=== PATIENT | male | born 1995 | race Caucasian/White ===

== ENCOUNTER 2019-03-05 09:05 | Emergency (ER) | payer OTHER ==
[~2019-03-05] VITALS: Ht 182.9 cm; Wt 85.4 kg
[2019-03-05 09:20] VITALS: BP 137/72
--- NOTE | 2019-03-05 09:35 | NUR ---
24 Y/O M BIB FRIEND THAT STATES PT HAD A "SEIZURE" AT 6:30AM THIS MORNING. FRIEND DESCRIBES PT SHAKING. PT STATES HE HAS AT A HOUSE [employer] LAST NIGHT AND DRANK JUNGLE JUICE, SMOKED MARIJUNA, VAPED. PT STATES HE PASSED LAST EVENING AND AWOKE TO HIS FRIEND STATING HE FEELS HE HAD A SEIZURE. PT VS STABLE. 02 100x ON 2 L OXYGEN. SEIZURE PADS IN PLACE, BED LOWERED. PT FRIEND AT BEDSIDE. NKA MEDHX: NONE
--- NOTE | 2019-03-05 09:44 | NUR ---
PT TO CT BY WILLIAM.
--- NOTE | 2019-03-05 09:44 | NUR ---
X RAY AT BEDSIDE.
--- NOTE | 2019-03-05 09:54 | NUR ---
PT RETURNED FROM CT BY WILLIAM.
--- NOTE | 2019-03-05 10:34 | NUR ---
EMT AT BEDSIDE PERFORMING EKG
[2019-03-05 10:47] LABS: BASOPHILS % (AUTO) 0.1 % (0.0-2.0); EOSINOPHILS # (AUTO) 0.1 K/uL (0-0.4); EOSINOPHILS % (AUTO) 0.5 % (0.0-4.0); HEMATOCRIT 49.1 % (36-52); LYMPHOCYTES # (AUTO) 2.5 K/uL (2.0-11.5); LYMPHOCYTES % (AUTO) 11.9 % (20.5-51.1); MEAN CORPUSCULAR HEMOGLOBIN 30 pg (27-31); MEAN CORPUSCULAR HGB CONC 33 g/dL (33-37); MEAN CORPUSCULAR VOLUME 92.3 fL (80-94); MONOCYTES # (AUTO) 0.8 K/uL (0.8-1.0); MONOCYTES % (AUTO) 3.7 % (1.7-9.3); NEUTROPHILS # (AUTO) 17.4 K/uL (1.8-7.7); NEUTROPHILS % (AUTO) 83.8 % (42.2-75.2); PLATELET COUNT (AUTO) 193 K/uL (140-450); RED BLOOD CELL COUNT(AUTO) 5.32 MIL/uL (4.20-6.10); RED CELL DISTRIBUTION WIDTH 13.9 % (11.6-13.7); WHITE BLOOD COUNT (AUTO) 20.8 K/uL (4.8-10.8)
[2019-03-05 11:01] LABS: APPEARANCE,URINE CLEAR (CLEAR); BILIRUBIN,URINE NEGATIVE (NEGATIVE); BLOOD, URINE NEGATIVE (NEGATIVE); COLOR,URINE YELLOW (YELLOW); LEUKOCYTE ESTERASE ,URINE NEGATIVE (NEGATIVE); NITRITE, URINE NEGATIVE (NEGATIVE); UGLUCOSE NEGATIVE (NEGATIVE)
[2019-03-05 11:01] LABS: ANION GAP 11.6 (8-16); CARBON DIOXIDE 30.5 mmol/L (21-32); CHLORIDE 99 mmol/L (98-107); CREATININE 1.1 mg/dL (0.7-1.3); GFR ARICAN-AMERICAN 106 mL/min (>90); GLUCOSE 218 mg/dL (74-106); POTASSIUM 3.1 mmol/L (3.5-5.1); SODIUM SERUM 138 mmol/L (136-145); UREA NITROGEN, BLOOD 13 mg/dL (7-18)
[2019-03-05 11:13] LABS: RBC,URINE NONE SEEN /HPF (0-5); WBC,URINE 0-5 /HPF (0-5)
[2019-03-05 11:14] LABS: HYALINE CASTS, URINE 0-10 /LPF (None Seen)
[2019-03-05 11:16] LABS: BARBITURATE, URINE NEG. ng/ml (NEG <=200); BENZODIAZEPINE, URINE POS. ng/mL (NEG <=200); CANNABINOID, URINE POS. ng/mL (NEG <=50); COCAINE, URINE POS. ng/mL (NEG <=300); OPIATE, URINE NEG. ng/mL (NEG <=2000); PHENCYCLIDINE SCREEN,URINE NEG. ng/mL (NEG <=25)
[2019-03-05] MEDS ORDERED: NACL 0.9% 1,000 ML IV ONE (11:25)
[2019-03-05 11:27] LABS: ALBUMIN 4.1 g/dL (3.4-5.0); ASPARTATE AMINOTRANSFERASE 9 U/L (15-37); TOTAL BILIRUBIN 0.5 mg/dL (0.0-1.0)
[2019-03-05 11:35] LABS: SALICYLATE < 2.8 mg/dL (2.8-20.0)
[2019-03-05 11:38] LABS: ACETAMINOPHEN 73.9 ug/ml (10-30)
[2019-03-05] MEDS ORDERED: ACETYLCYSTEINE IV ONE ×3 (12:00)
[2019-03-05] MEDS ORDERED: DEXTROSE 5% IV ONE ×3 (12:00)
[2019-03-05] MEDS ORDERED: ACETYLCYSTEINE 20% (200 MG/ML) 200 MG/ML VIAL PO ONE (12:10)
[2019-03-05] MEDS ORDERED: ACETYLCYSTEINE IV 6000 MG/30 ML VIAL IV ONE (12:24)
[2019-03-05] MEDS ORDERED: ACETYLCYSTEINE 20% (200 MG/ML) 200 MG/ML VIAL PO SCH (12:30)
[2019-03-05 13:03] VITALS: BP 121/60
--- NOTE | 2019-03-05 13:03 | NUR ---
PT LEFT AMA. PT VERBALIZED UNDERSTANDING OF DOCTORS PLAN OF CARE. PT REFUSED.
== END 2019-03-05 13:03 | disposition left against medical advice (07) ==
LOC: MED 09:05
DX: T39.1X5A Adverse effect of 4-Aminophenol derivatives, initial encounter (principal); R56.9 Unspecified convulsions; Y92.89 Other specified places as the place of occurrence of the external cause
CPT/HCPCS: 36415; 70450; 71045; 80053; 80305; 81001; 84484; 85025; 93005; 99284; G0480; G0482; J0132; J7030; J7060; Q0092; J7608

== ENCOUNTER 2019-03-24 20:58 | Emergency (ER) | payer OTHER ==
[~2019-03-24] VITALS: Ht 182.9 cm; Wt 84.8 kg
[2019-03-24 21:05] VITALS: BP 98/61
--- NOTE | 2019-03-24 21:08 | NUR ---
TO LOBBY A/W BED AMBULATORY
--- NOTE | 2019-03-24 21:23 | NUR ---
PT AMBULATED TO BED 10 WITH FAMILY MEMBER
[2019-03-24] MEDS ORDERED: LORazepam 2 MG/ML VIAL ONE (21:39)
[2019-03-24] MEDS ORDERED: NACL 0.9% 1,000 ML IV ONE (21:40)
[2019-03-24] MEDS ORDERED: LORazepam 2 MG/ML VIAL IVP ONE (21:40)
--- NOTE | 2019-03-24 21:47 | NUR ---
Pt came into hosptial for sz lasting 2 minutes at home. Pt friend states he had a seizure e 3weeks ago as well. Friend state he saw the pt head tilt back in chair and his whole body shake. Pt states he feels light headed before the sz. pt admits to smoking weed today nothing else. Pt VSS upon arrival. When placing pt on sz percautions and starting IV. Pt became sinus nehal in low 30's. pt became pale, cool and head tilted back to pillow. Dr. matta notfied of pt condition. order 2mg of ativan iv. Pt BP taken again while nehal. Pt BP 62/25. Pt placed on nonrebreather mask at 15lpm. Dr. matta at bedside assessing pt. pt appears to be very lethargic but responsive. Pt placed on defib pads. Pt BS checked 131.
--- NOTE | 2019-03-24 21:48 | NUR ---
EKG PERFORMED AT BEDSIDE
[2019-03-24 22:04] LABS: BASOPHILS % (AUTO) 0.2 % (0.0-2.0); EOSINOPHILS # (AUTO) 0.1 K/uL (0-0.4); EOSINOPHILS % (AUTO) 0.9 % (0.0-4.0); HEMATOCRIT 49.8 % (36-52); HEMOGLOBIN 16.4 g/dL (12.0-18.0); LYMPHOCYTES # (AUTO) 2.2 K/uL (2.0-11.5); LYMPHOCYTES % (AUTO) 15.8 % (20.5-51.1); MEAN CORPUSCULAR HEMOGLOBIN 30 pg (27-31); MEAN CORPUSCULAR HGB CONC 33 g/dL (33-37); MEAN CORPUSCULAR VOLUME 90.7 fL (80-94); MONOCYTES # (AUTO) 0.6 K/uL (0.8-1.0); MONOCYTES % (AUTO) 4.7 % (1.7-9.3); NEUTROPHILS # (AUTO) 10.8 K/uL (1.8-7.7); NEUTROPHILS % (AUTO) 78.4 % (42.2-75.2); PLATELET COUNT (AUTO) 196 K/uL (140-450); RED BLOOD CELL COUNT(AUTO) 5.49 MIL/uL (4.20-6.10); RED CELL DISTRIBUTION WIDTH 13.7 % (11.6-13.7); WHITE BLOOD COUNT (AUTO) 13.7 K/uL (4.8-10.8)
--- NOTE | 2019-03-24 22:08 | NUR ---
PT WENT TO CT
--- NOTE | 2019-03-24 22:27 | NUR ---
pt back from CT
[2019-03-24 22:31] LABS: ACETAMINOPHEN < 0.5 ug/ml (10-30); ASPARTATE AMINOTRANSFERASE 9 U/L (15-37); CHLORIDE 102 mmol/L (98-107); CREATININE 1.1 mg/dL (0.6-1.3); GFR ARICAN-AMERICAN 106 mL/min (>90); GLUCOSE 153 mg/dL (74-106); SALICYLATE < 2.8 mg/dL (2.8-20.0); SODIUM SERUM 139 mmol/L (136-145); TOTAL BILIRUBIN 0.8 mg/dL (0.0-1.0); UREA NITROGEN, BLOOD 11 mg/dL (7-18)
[2019-03-24] MEDS ORDERED: POTASSIUM CHLORIDE 10 MEQ TABER PO ONE (23:05)
--- NOTE | 2019-03-24 23:05 | NUR ---
pt able to give urine sample. sent to lab.
[2019-03-24 23:26] LABS: BARBITURATE, URINE NEG. ng/ml (NEG <=200); BENZODIAZEPINE, URINE NEG. ng/mL (NEG <=200); CANNABINOID, URINE POS. ng/mL (NEG <=50); COCAINE, URINE NEG. ng/mL (NEG <=300); OPIATE, URINE NEG. ng/mL (NEG <=2000); PHENCYCLIDINE SCREEN,URINE NEG. ng/mL (NEG <=25)
[2019-03-24] MEDS ORDERED: levETIRAcetam 1,000 MG in NACL 0.9% 100 ML IV ONE (23:35)
[2019-03-24] MEDS ORDERED: levETIRAcetam 100 MG/ML VIAL IV ONE (23:40)
--- NOTE | 2019-03-25 00:30 | NUR ---
NO CHANGES FROM PREVIOUS ASSESSMENTS. VSS. AOX4. PT FRIEND AT BEDSIDE. FRIEND WILL WATCH PT OVER NIGHT. Patient discharged with v/s stable. Written and verbal after care instructions given and explained. Patient alert, oriented and verbalized understanding of instructions. Wheel Chair Assisted with to car. All questions addressed prior to discharge. ID band removed. Patient advised to follow up with PMD. Rx of KEPPRA given. Patient educated on indication of medication including possible reaction and side effects. Opportunity to ask questions provided and answered.
[2019-03-25 00:38] VITALS: BP 103/62
== END 2019-03-25 00:30 | disposition home or self-care (01) ==
LOC: MED 20:58
DX: R56.9 Unspecified convulsions (principal); F12.90 Cannabis use, unspecified, uncomplicated; F14.90 Cocaine use, unspecified, uncomplicated
CPT/HCPCS: 36415; 70450; 80053; 80305; 85025; 93005; 96365; 96375; 99284; G0480; G0482; J1953; J2060; J7030